=== PATIENT | female | born 1945 | race Caucasian/White ===

== ENCOUNTER 2020-02-19 07:40 | Emergency (ER) | payer MEDICARE, BC ==
[2020-02-19] MEDS ORDERED: Aspirin 81 MG Tab.Chew PO ONE (08:16)
--- NOTE | 2020-02-19 08:20 | EDM.PDOC ---
ED HPI GENERAL MEDICAL PROBLEM - General Chief Complaint: Respiratory Problem Stated Complaint: CHEST PAIN Time Seen by Provider: 02/19/20 09:39 Source of Information: Reports: Patient, RN Notes Reviewed History Limitations: Reports: No Limitations - History of Present Illness INITIAL COMMENTS - FREE TEXT/NARRATIVE: 74 yo F wo presented to the ER with 2-3 days h/o SOB, epigastric discomfort as well as pleuritic type chest pain. Symptoms started 2-3 days ago and got progressively worse. No cough, Fever,Leg swelling or dizziness. Patient recently underwent COVID 19 test at the [facility] and was told to that if did not receive a call in 24 - 48 hours that the result is negative. Patient currently assume that her covid 19 test is negative. She is concerned about the SOB and presented to the ER for further evaluation. Onset: Gradual Onset Date: 02/16/20 Duration: Day(s): (started 2-3 days ago) Quality: Reports: Ache Severity: Moderate Associated Symptoms: Reports: Chest Pain, Shortness of Breath epigastric Pain Score (Numeric/FACES): 6 - Related Data Allergies Allergy/AdvReac Type Severity Reaction Status Date / Time Sulfa (Sulfonamide Allergy Hives Verified 02/19/20 08:46 Antibiotics) Home Meds: Home Meds Furosemide [Lasix] 20 mg PO DAILY #4 tab 02/19/20 [Rx] Mirtazapine 15 mg PO BEDTIME 02/19/20 [History] Niacin [Niacin ER] 500 mg PO DAILY 02/19/20 [History] Potassium Chloride 10 meq PO DAILY #4 cap.er 02/19/20 [Rx] traZODone HCl [Trazodone HCl] 50 mg PO BEDTIME 02/19/20 [History] Past Medical History Respiratory History: Reports: Other (See Below) Other Respiratory History: Smoked for 5 years during her college years but states that she quit 4 years ago. Musculoskeletal History: Reports: Other (See Below) Other Musculoskeletal History: has MS Psychiatric History: Reports: Other (See Below) Other Psychiatric History: states that she takes sleeping aid trazodone and mertazapine. Dermatologic History: Reports: Other (See Below) Other Dermatologic History: has hx of skin cancer, had radiation therapy last year for her leg, states that it was back this year thus she goes to the wound clinic everyweek for her wound at the right lower leg. - Past Surgical History Female Surgical History: Reports: Hysterectomy Social & Family History - Family History Family Medical History: Noncontributory ED ROS GENERAL - Review of Systems Review Of Systems: See Below Constitutional: Reports: No Symptoms HEENT: Reports: No Symptoms Respiratory: Reports: Shortness of Breath, Pleuritic Chest Pain Endocrine: Reports: Fatigue GI/Abdominal: Reports: No Symptoms : Reports: No Symptoms Musculoskeletal: Reports: No Symptoms Skin: Reports: No Symptoms Neurological: Reports: No Symptoms Psychiatric: Reports: No Symptoms Hematologic/Lymphatic: Reports: No Symptoms Immunologic: Reports: No Symptoms ED EXAM, GENERAL - Physical Exam Exam: See Below Exam Limited By: No Limitations General Appearance: Alert, WD/WN, No Apparent Distress Eye Exam: Bilateral Eye: EOMI Ears: Normal External Exam, Normal Canal, Hearing Grossly Normal, Normal TMs Ear Exam: Bilateral Ear: Auricle Normal, Discharge Nose: Normal Inspection, Normal Mucosa Throat/Mouth: Normal Inspection, Normal Lips, Normal Teeth Head: Atraumatic, Normocephalic Neck: Normal Inspection, Supple, Non-Tender Respiratory/Chest: No Respiratory Distress, Lungs Clear, Normal Breath Sounds, No Accessory Muscle Use Cardiovascular: Normal Peripheral Pulses, Regular Rate, Rhythm, No Edema, No JVD , No Murmur GI/Abdominal: Normal Bowel Sounds, Soft, Non-Tender, No Organomegaly, No Distention, No Abnormal Bruit Back Exam: Normal Inspection Extremities: Normal Inspection, Normal Range of Motion Neurological: Alert, Oriented, CN II-XII Intact, Normal Cognition Psychiatric: Normal Affect, Normal Mood Skin Exam: Warm, Dry, Intact Course - Vital Signs Last Recorded V/S: Last Vital Signs Temp 36.0 C L 02/19/20 07:45 Pulse 67 02/19/20 11:23 Resp 19 02/19/20 11:23 BP 149/75 H 02/19/20 11:23 Pulse Ox 98 02/19/20 11:23 - Orders/Labs/Meds Orders: Active Orders 24 hr Category Date Time Status EKG Documentation Completion [RC] ASDIRECTED Care 02/19/20 08:48 Active Ang Chest [CT] Stat Exams 02/19/20 09:32 Taken CXR [Chest 2V] [CR] Stat Exams 02/19/20 08:15 Taken EKG 12 Lead [EK] Routine Ther 02/19/20 08:48 Ordered Labs: Laboratory Tests 02/19/20 02/19/20 02/19/20 Range/Units 08:20 08:20 08:20 WBC 5.9 (4.5-12.0) X10-3/uL RBC 3.88 (3.23-5.20) x10(6)uL Hgb 11.7 (11.5-15.5) g/dL Hct 35.2 (30.0-51.3) % MCV 90.6 (80-96) fL MCH 30.1 (27.7-33.6) pg MCHC 33.2 (32.2-35.4) g/dL RDW 12.8 (11.5-15.5) % Plt Count 160 (125-369) X10(3)uL MPV 6.9 L (7.4-10.4) fL Neut % (Auto) 72.1 (46-82) % Lymph % (Auto) 20.1 (13-37) % Garfield % (Auto) 6.6 (4-12) % Eos % (Auto) 1 (1.0-5.0) % Baso % (Auto) 0 (0-2) % Neut # (Auto) 4.1 (1.6-8.3) # Lymph # (Auto) 1.2 (0.6-5.0) # Garfield # (Auto) 0.4 (0.0-1.3) # Eos # (Auto) 0.1 (0.0-0.8) # Baso # (Auto) 0.0 (0.0-0.2) # D-Dimer, Quantitative (0.0-0.59) mg/LFEU Sodium 142 (135-145) mmol/L Potassium 3.6 (3.5-5.3) mmol/L Chloride 106 (100-110) mmol/L Carbon Dioxide 28 (21-32) mmol/L BUN 13 (7-18) mg/dL Creatinine 0.6 (0.55-1.02) mg/dL Est Cr Clr Drug Dosing TNP Estimated GFR (MDRD) > 60 (>60) BUN/Creatinine Ratio 21.7 H (9-20) Glucose 136 H (80-116) mg/dL Calcium 8.4 L (8.6-10.2) mg/dL Total Bilirubin 1.7 H (0.1-1.3) mg/dL AST 18 (5-25) IU/L ALT 20 (12-36) U/L Alkaline Phosphatase 63 (56-112) IU/L Troponin I 9.1 (4.0-60.3) pg/mL NT-Pro-B Natriuret Pep 352 H (<=125) pg/mL Total Protein 6.4 (6.0-8.0) g/dL Albumin 3.5 (3.2-4.6) g/dL Globulin 2.9 g/dL Albumin/Globulin Ratio 1.2 02/19/20 Range/Units 08:20 WBC (4.5-12.0) X10-3/uL RBC (3.23-5.20) x10(6)uL Hgb (11.5-15.5) g/dL Hct (30.0-51.3) % MCV (80-96) fL MCH (27.7-33.6) pg MCHC (32.2-35.4) g/dL RDW (11.5-15.5) % Plt Count (125-369) X10(3)uL MPV (7.4-10.4) fL Neut % (Auto) (46-82) % Lymph % (Auto) (13-37) % Garfield % (Auto) (4-12) % Eos % (Auto) (1.0-5.0) % Baso % (Auto) (0-2) % Neut # (Auto) (1.6-8.3) # Lymph # (Auto) (0.6-5.0) # Garfield # (Auto) (0.0-1.3) # Eos # (Auto) (0.0-0.8) # Baso # (Auto) (0.0-0.2) # D-Dimer, Quantitative 0.64 H (0.0-0.59) mg/LFEU Sodium (135-145) mmol/L Potassium (3.5-5.3) mmol/L Chloride (100-110) mmol/L Carbon Dioxide (21-32) mmol/L BUN (7-18) mg/dL Creatinine (0.55-1.02) mg/dL Est Cr Clr Drug Dosing Estimated GFR (MDRD) (>60) BUN/Creatinine Ratio (9-20) Glucose (80-116) mg/dL Calcium (8.6-10.2) mg/dL Total Bilirubin (0.1-1.3) mg/dL AST (5-25) IU/L ALT (12-36) U/L Alkaline Phosphatase (56-112) IU/L Troponin I (4.0-60.3) pg/mL NT-Pro-B Natriuret Pep (<=125) pg/mL Total Protein (6.0-8.0) g/dL Albumin (3.2-4.6) g/dL Globulin g/dL Albumin/Globulin Ratio Meds: Medications Discontinued Medications Generic Name Dose Route Start Last Admin Trade Name Emanuelq PRN Reason Stop Dose Admin Aspirin 324 mg 02/19/20 08:16 02/19/20 08:19 Aspirin PO 02/19/20 08:17 324 mg ONETIME ONE Administration Iopamidol 65 ml 02/19/20 10:05 02/19/20 10:22 Isovue-370 (76%) IV 02/19/20 10:06 65 ml . DIRECTED ONE Administration Departure - Departure Time of Disposition: 11:36 Disposition: Home, Self-Care 01 Clinical Impression: Shortness of breath, Acute pulmonary edema, Epigastric pain - Discharge Information Prescriptions: Furosemide [Lasix] 20 mg PO DAILY #4 tab Potassium Chloride 10 meq PO DAILY #4 cap.er Instructions: Furosemide tablets, Potassium chloride tablets, extended-release tablets or capsules Referrals: Sergio Moya MD [Primary Care Provider] - Forms: ED Department Discharge Additional Instructions: Follow with PCP within 1 week Trial of Lasix Return if symptoms worsen Call your Physician or Return to Emergency Department if: * Your condition worsens in any way. * You develop fever greater than 100.4. * You have vomitting that does not stop with medications. * You have pain that is not controlled with medications. Sepsis Event Note - Evaluation Sepsis Screening Result: No Definite Risk - Focused Exam Vital Signs: Vital Signs Temp Pulse Resp BP Pulse Ox 02/19/20 11:23 67 19 149/75 H 98 02/19/20 11:01 66 16 122/62 100 02/19/20 10:46 65 17 116/56 L 100 02/19/20 09:45 69 17 114/46 L 100 02/19/20 09:15 65 18 107/60 100 02/19/20 09:00 64 18 102/61 100 02/19/20 08:45 64 18 98/65 100 02/19/20 08:30 67 18 107/57 L 100 02/19/20 08:15 66 18 103/52 L 100 02/19/20 07:45 36.0 C L 60 19 107/58 L 98 Date Exam was Performed: 02/19/20 Time Exam was Performed: 11:39 - My Orders Last 24 Hours: My Active Orders 02/19/20 08:15 CXR [Chest 2V] [CR] Stat 02/19/20 08:48 EKG Documentation Completion [RC] ASDIRECTED EKG 12 Lead [EK] Routine 02/19/20 09:32 Ang Chest [CT] Stat - Assessment/Plan Last 24 Hours: My Active Orders 02/19/20 08:15 CXR [Chest 2V] [CR] Stat 02/19/20 08:48 EKG Documentation Completion [RC] ASDIRECTED EKG 12 Lead [EK] Routine 02/19/20 09:32 Ang Chest [CT] Stat
[2020-02-19] MEDS ORDERED: Iopamidol 755 Mg/ML 100 ML Bottle IV ONE (10:05)
--- NOTE | 2020-02-20 10:34 | CR ---
INDICATION: Short of breath. CHEST, 2 VIEWS: PA and lateral views of the chest were obtained 02/19/20 and compared with 09/03/11. The heart appears to be mildly enlarged or at the upper limits of normal in size. Overlying EKG leads are noted. Patchy increased density at the right medial lung base raises question of a minimal pneumonia in that area. No other finding to suggest an acute process was identified. Degenerative changes of a moderate degree are noted in the mid-thoracic spine. A minimal dextroconvex scoliosis of the mid-thoracic spine is also noted. IMPRESSION: 1. Question minimal infiltrate at the right medial lung base - correlate clinically. 2. Heart appears to be at the upper limits of normal in size or slightly enlarged. 3. No evidence of CHF is identified. MTDD
== END 2020-02-19 11:44 | disposition home or self-care (01) ==
LOC: FB.ED 07:40
DX: J81.0 Acute pulmonary edema (principal); R10.13 Epigastric pain; Z88.2 Allergy status to sulfonamides; Z79.899 Other long term (current) drug therapy; Z87.891 Personal history of nicotine dependence; Z90.710 Acquired absence of both cervix and uterus
CPT/HCPCS: 36415; 71046; 71275; 80053; 83880; 84484; 85025; 85379; 93005; 99285; A9270; Q9967

== ENCOUNTER 2024-06-07 01:39 | Emergency (ER) | payer MEDICARE, BC ==
[2024-06-07 02:19] LABS: BASOPHILS PERCENT AUTO 0.3 % (0.2-1.5); BLOOD UREA NITROGEN,BUN 12 mg/dL (7-18); BUN/CREATININE RATIO 17.1 (9-20); CALCIUM 9.3 mg/dL (8.6-10.2); CARBON DIOXIDE,CO2 29 mmol/L (21-32); CHLORIDE,CL 102 mmol/L (100-110); CREATININE 0.7 mg/dL (0.55-1.02); EOSINOPHILS PERCENT AUTO 0.5 % (0.6-8.1); EST CRCL DRUG DOSING (CG) 61.01 mL/min; ESTIMATED GFR 88 mL/min (>60); GLUCOSE RANDOM 146 mg/dL (80-116); HEMOGLOBIN 12.9 g/dL (11.4-15.5); LYMPHOCYTES ABSOLUTE AUTO 0.7 x10-3/uL (1.0-4.4); LYMPHOCYTES PERCENT AUTO 10.2 % (18.4-52.1); MEAN CORPUSCULAR HEMOGLOBIN 31.1 pg (23.9-33.9); MEAN CORPUSCULAR HGB CONC 34.9 g/dL (31.9-34.8); MEAN CORPUSCULAR VOLUME 89.3 fL (76.7-100.5); MONOCYTES ABSOLUTE AUTO 0.4 x10-3/uL (0.3-1.0); MONOCYTES PERCENT AUTO 5.2 % (4.4-15.7); NEUTROPHILS ABSOLUTE AUTO 6.1 x10-3/uL (1.5-6.3); NEUTROPHILS PERCENT AUTO 83.8 % (30.8-76.2); PLATELET COUNT,PLT 171 x10(3)uL (151-488); POTASSIUM,K 3.8 mmol/L (3.5-5.3); RED BLOOD CELL COUNT 4.14 x10(6)uL (3.60-5.20); RED CELL DISTRIBUTION WIDTH 13.4 % (12.3-16.5); SODIUM,NA 139 mmol/L (135-145); WHITE BLOOD CELL COUNT,WBC 7.3 x10-3/uL (3.0-10.3)
[2024-06-07 02:30] LABS: A/G RATIO 1.1; ALBUMIN 3.6 g/dL (3.2-4.6); ALKALINE PHOSPHATASE 296 IU/L (56-112); BILIRUBIN TOTAL 2.7 mg/dL (0.1-1.3)
[2024-06-07 02:38] LABS: ALANINE AMINOTRANSFERASE,ALT 296 U/L (12-36); ASPARTATE AMNIOTRANSFERASE,AST 270 IU/L (5-25)
[2024-06-07 02:39] LABS: BILIRUBIN,URINE NEGATIVE (NEGATIVE); GLUCOSE,URINE NORMAL (NORMAL); KETONES,URINE NEGATIVE (NEGATIVE); LEUKOCYTE ESTERASE,URINE NEGATIVE (NEGATIVE); NITRITE,URINE POSITIVE (NEGATIVE); OCCULT BLOOD,URINE NEGATIVE (NEGATIVE); PROTEIN,URINE NEGATIVE (NEGATIVE); UROBILINOGEN,URINE NORMAL (NEGATIVE)
[2024-06-07 02:48] LABS: APPEARANCE,URINE SLIGHTLY CLOUDY (CLEAR); BACTERIA,URINE MODERATE (NS); COLOR,URINE YELLOW (YELLOW); RBC,URINE 0-5 (0-5); SQUAMOUS EPITHELIAL CELLS,UR FEW (NS,R,O); WBC,URINE 0-5 (0-5)
[2024-06-07] MEDS: Sodium Chloride 0.9% 1,000 ML IV ONE (03:18)
[2024-06-07] MEDS: cefTRIAXone 1 GM Vial IVPUSH ONE (03:56)
[2024-06-07] MEDS: fentaNYL 100 MCG/2 ML SDV IVPUSH ONE (04:00)
[2024-06-07] MEDS ORDERED: cefTRIAXone 1 GM Vial IVPUSH SCH ×2 (04:00)
[2024-06-07] MEDS: Sodium Chloride 0.9% 1,000 ML IV SCH (04:22)
[2024-06-07] MEDS: Iopamidol 755 Mg/ML 100 ML Bottle IV SCH (07:22)
== END 2024-06-07 08:31 | disposition home or self-care (01) ==
LOC: FB.ED 01:39
DX: K85.90 Acute pancreatitis without necrosis or infection, unspecified (principal); R74.01 Elevation of levels of liver transaminase levels; Z88.2 Allergy status to sulfonamides; Z90.710 Acquired absence of both cervix and uterus
CPT/HCPCS: 74177; 76705; 80053; 81001; 83690; 84484; 85025; 93005; 96361; 96374; 96375; 99284; J0696; J3010; J7030; Q9967